=== PATIENT | female | born 1955 | race Caucasian/White ===

== ENCOUNTER 2020-09-29 05:54 | Day surgery (SDC) | payer OTHER ==
[~2020-09-29] VITALS: Ht 165.1 cm; Wt 53.2 kg
[~2020-09-29 05:54] MED LIST: ALBU6.7H9 PO; DOXY100C2 PO; FAMO20 PO; FAMO40TA7 PO; FLUT16H NASAL; FLUT1BLS9 IH; MONT10TA32 PO; PRED10 PO; PROM118S5 PO
[2020-09-29] MEDS ORDERED: SODIUM CHLORIDE 0.9% 1,000 ML ONE (06:15)
[2020-09-29] MEDS ORDERED: SODIUM CHLORIDE 0.9% 1,000 ML IV ONE (06:30)
[2020-09-29 06:47] LABS: COVID AG,FIA SOURCE NASOPHARYNGEAL
[2020-09-29] MEDS ORDERED: FentaNYL CITRATE PF 100 MCG/2 ML VIAL ONE (07:01)
[2020-09-29] MEDS ORDERED: MIDAZOLAM HCL 5 MG/ML VIAL ONE (07:01)
[2020-09-29] MEDS ORDERED: MethylPREDNISolone SOD SUCC 125 MG/2 ML VIAL IVP ONE (08:30)
[2020-09-29] MEDS ORDERED: MethylPREDNISolone SOD SUCC 125 MG/2 ML VIAL ONE (09:15)
[2020-09-29] MEDS ORDERED: LIDOCAINE 2% 30 ML JELLY ONE (17:18)
[2020-09-29] MEDS ORDERED: BENZOCAINE 20% 50 MCG/SPRAY 57 GM ONE (17:18)
[2020-09-29] MEDS ORDERED: ALBUTEROL SULFATE 2.5 MG/0.5 ML NEB SOLUTION NEB ONE (17:18)
[2020-09-29] MEDS ORDERED: OXYGEN THERAPY IH SCH (20:00)
== END 2020-09-29 10:30 | disposition home or self-care (01) ==
LOC: SURGERY 05:54
PROVIDERS: ATTEND Internal Medicine Critical Care Medicine
DX: J38.4 Edema of larynx (principal); B37.0 Candidal stomatitis; Z87.01 Personal history of pneumonia (recurrent); Z79.899 Other long term (current) drug therapy; Z98.890 Other specified postprocedural states
CPT/HCPCS: 31623; 31624; 71045; 87015; 87070; 87101; 87205; 87206; 87220; 87426; 88108; 88184; 88185; 88312; C9803; J2250; J2930; J3010; J7030; J7613